=== PATIENT | male | born 1965 | race Caucasian/White ===

== ENCOUNTER → 2025-03-01 | Outpatient (CLI) | payer BC ==
--- NOTE | 2025-03-01 14:47 | CTL ---
EXAMINATION TYPE: CT Low Dose Lung DATE OF EXAM ORDERED: 03/01/2025 COMPARISON: None CLINICAL INDICATION: Male, 59 years old with history of Z12.2 ENCNTR SCREEN FO F17.210 NICOTINE DEPEN DENCE; PHH, personal tobacco use, Lung cancer screening, History of Smoking/tobacco use. TECHNIQUE: Low dose computed tomography scan was performed through the chest at 1 mm thick sections a nd reconstructed images in multiple planes at 1 mm and [address] DLP: 85.[address] CTDI: 2.4 mGy Automated exposure control for dose reduction was used. CT DIAGNOSTIC QUALITY: Satisfactory EXAMINATION TYPE: CT Low Dose Lung DATE OF EXAM ORDERED: 03/01/2025 CLINICAL INDICATION: Male, 59 years old with history of Z12.2 ENCNTR SCREEN FO F17.210 NICOTINE DEPEN DENCE, history of tobacco use, Lung cancer screening CT DLP: 85.[address] CTDI: 2.4 mGy Automated exposure control for dose reduction was used. Comparison: None TECHNIQUE: Low dose computed tomography scan was performed through the chest at 1 mm thick sections a nd reconstructed images in multiple planes at 1 mm and [address] DIAGNOSTIC QUALITY: Satisfactory FINDINGS: There are mild emphysematous changes. There is no suspicious lung mass or nodule. There is a 3 mm nod ule in the right middle lobe. There are a few scattered micronodules. The lungs are clear and there is no abnormal airspace consolidation or interstitial density. There is no mediastinal, hilar or axillary adenopathy. There is no pleural effusion, pleural thickening or pneumothorax. No focal osseous lesions are seen. Limited scans the upper abdomen reveals no gross abnormality IMPRESSION: 1. Lung rads Category 2 benign. Continue routine screening at yearly intervals. 2. . Mild emphysematous changes. [facility], , 03/01/2025 2:45 PM
== END | disposition home or self-care (01) ==
LOC: RADCTMAIN 10:04
PROVIDERS: ATTEND Family Medicine
DX: Z12.2 Encounter for screening for malignant neoplasm of respiratory organs (principal); F17.210 Nicotine dependence, cigarettes, uncomplicated; J43.9 Emphysema, unspecified
CPT/HCPCS: 71271

== ENCOUNTER → 2025-04-11 | Outpatient (CLI) | payer BC ==
--- NOTE | 2025-04-11 10:06 | XR ---
EXAMINATION TYPE: XR lumbosacral spine 5 views, XR Hip Complete 2 views LT DATE OF EXAM: 04/11/2025 9:57 AM COMPARISON: None CLINICAL INDICATION: Male, 59 years old with history of [id number] LBP, LT HIP PAIN; [facility], pain FINDINGS: Lumbar spine: Hypertrophic facet arthropathy lower lumbar spine. Grade 2 anterolisthesis L5-S1 with mild to moderat e degenerative disc disease. Mild degenerative disc space narrowing L4-L5. Vertebral body heights are preserved for an remaining alignment is maintained. Bilateral L5 pars defects. Left hip: Moderate degenerative change with superolateral joint space narrowing and prominent marginal spurring . No acute fracture, subluxation, dislocation. IMPRESSION: Lumbar spine: 1. Bilateral L5 pars defects with grade 2 anterolisthesis at L5-S1. 2. Hypertrophic facet arthropathy lower lumbar spine. 3. Mild to moderate degenerative disc disease L5-S1 and mild at L4-L5. Left hip: 4. Moderate left evaluate. [facility], Workstation: [email or web address], 04/11/2025 10:04 AM
== END | disposition home or self-care (01) ==
LOC: RADXRYALE 08:54
PROVIDERS: ATTEND Physician Assistant
DX: M51.372 Other intervertebral disc degeneration, lumbosacral region with discogenic back pain and lower extremity pain (principal); M43.17 Spondylolisthesis, lumbosacral region; M47.816 Spondylosis without myelopathy or radiculopathy, lumbar region; M16.12 Unilateral primary osteoarthritis, left hip
CPT/HCPCS: 72110; 73502